=== PATIENT | female | born 1995 | race Caucasian/White ===

== ENCOUNTER → 2017-09-23 13:53 | Outpatient (CLI) | payer OTHER, SELFPAY ==
[2017-09-29 11:51] LABS: HPV Reflexed? NOT INDICATED
== END ==
PROVIDERS: Visit Provider Obstetrics & Gynecology
DX: Z12.4 Encounter for screening for malignant neoplasm of cervix (principal)
CPT/HCPCS: 88175; G0145

== ENCOUNTER 2018-01-17 09:28 | Emergency (ER) | payer OTHER, SELFPAY ==
[2018-01-17 09:28] VITALS: BP 149/74; PULSE 70; RESP 18; TEMP 36.4; O2SAT 100; BMI 23.7
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
--- NOTE | 2018-01-17 10:03 | ED.RN ---
Applied bacitracin to dasilva on fingers to assist in emulsifying residual rubber on fingers. Also applied mayonnaise after removing the bacitracin.
[2018-01-17] MEDS: Diphth,Pertuss(Acell),Tet Vac 0.5 ML Vial IM (10:52)
[2018-01-17] MEDS: BACITRACIN 15 GM Tube 1 APPLIC TOPICAL (10:53)
== END 2018-01-17 11:06 | disposition home or self-care (01) ==
PROVIDERS: Emergency Provider Emergency Medicine; Family Provider Family Medicine; PCP Family Medicine
DX: T23.321A Burn of third degree of single right finger (nail) except thumb, initial encounter (principal); T31.0 Burns involving less than 10% of body surface; X03.4XXA Hit by object due to controlled fire, not in building or structure, initial encounter; Y93.89 Activity, other specified
CPT/HCPCS: 90715; 99282

== ENCOUNTER → 2018-03-08 17:08 | Outpatient (CLI) | payer OTHER, SELFPAY ==
--- NOTE | 2018-03-08 17:14 | RAD_ITS ---
STUDY: X-RAY CHEST REASON FOR EXAM: Female, 23 years old. Chest pain TECHNIQUE: Frontal and lateral views COMPARISON: March 20, 2014 FINDINGS: The lungs are expanded. Mild right basilar interstitial prominence. Normal size heart. Normal mediastinum and erasmo. Normal visualized pulmonary arteries. Normal visualized aortic arch and descending thoracic aorta. Normal visualized thoracic spine. Normal visualized ribs, clavicles, and shoulders. There is no demonstrated abnormality of the visualized soft tissue structures of the upper abdomen. RAD/Chest PA and Lateral IMPRESSION: Mild right basilar interstitial prominence. Electronically Signed: Ruben Salas DO at 21:34 EST Tel [phone], Service support ,
[2018-03-08 17:50] LABS: Absolute Lymphocyte Count 2.12 X10^3/ul (0.83-4.51); Absolute Neutrophil Count 3.7 X10^3/uL (2.0-7.7); Basophil# 0.01 X10^3/uL; Basophil% 0.1 % (0-1); Eosinophil# 0.28 X10^3/uL; Eosinophils% 4.1 % (0-5); Hematocrit 42.2 % (37-47); Hemoglobin 14.3 g/dl (12.0-15.0); Lymphocyte # 2.12 X10^3/ul (4.0); Lymphocyte % 30.8 % (19-41); Mean Corp Hgb Conc 33.9 g/gl (32-36); Mean Corpuscular Hgb 32.6 pg (27.0-32.0); Mean Corpuscular Volume 96.3 fL (81-99); Mean Platelet Vol. 9.1 fl (6.2-12.0); Monocyte# 0.81 X10^3/uL; Monocyte% 11.8 % (0-10); Neutrophil # 3.66 X10^3/uL (2.7-7.7); Neutrophil % 53.1 % (47-70); Platelet Count 332 K/mm3 (150-450); RBC Distribution Width CV 11.8 % (11.6-14.6); RBC Distribution Width SD 40.5 fl (35.1-43.9); Red Blood Count 4.38 M/mm3 (4.2-5.4); White Blood Count 6.9 K/mm3 (4.4-11.0)
[2018-03-08 17:54] LABS: POSITIVE COUNT NO; POSITIVE DIFFERENTIAL NO; POSITIVE MORPHOLOGY NO
[2018-03-08 18:01] LABS: D-Dimer Quantitative (DVT/PE) < 0.27 FEU/ug/m (0.27-0.49)
[2018-03-08 18:15] LABS: Anion Gap 10 (5-15); BUN 21 mg/dL (7-18); BUN/Creat Ratio 21.9 RATIO (10-20); Chloride 104 mmol/L (98-107); Creatinine, Serum 0.96 mg/dL (0.55-1.02); EST Glomerular Filtration Rate 78 mL/min (>60); Est Glom Filt Rate - Afr Amer 94 mL/min (>60); Glucose 92 mg/dL (74-106); Potassium 3.9 mmol/L (3.5-5.1); Sodium Level 142 mmol/L (136-145)
== END ==
PROVIDERS: Family Provider Family Medicine; PCP Family Medicine; Referring Provider Family Medicine; Visit Provider Family Medicine
DX: R07.9 Chest pain, unspecified (principal)
CPT/HCPCS: 36415; 71046; 80048; 85025; 85379

== ENCOUNTER → 2018-10-28 14:55 | Outpatient (CLI) | payer OTHER, SELFPAY ==
[2018-11-02 15:00] LABS: HPV Reflexed? NOT INDICATED
== END ==
PROVIDERS: Visit Provider Obstetrics & Gynecology
DX: Z12.4 Encounter for screening for malignant neoplasm of cervix (principal)
CPT/HCPCS: 88175; G0145

== ENCOUNTER 2019-05-26 21:57 | Emergency (ER) | payer OTHER, SELFPAY ==
[2019-04-25 09:48] VITALS: BMI 23.7
[2019-05-26 21:58] VITALS: BP 119/77; PULSE 82; RESP 16; TEMP 36.7; O2SAT 100; BMI 25.4
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
== END 2019-05-26 23:17 | disposition home or self-care (01) ==
LOC: ED 22:38
PROVIDERS: Emergency Provider Emergency Medicine; PCP Family Medicine
DX: S01.81XA Laceration without foreign body of other part of head, initial encounter (principal); W50.0XXA Accidental hit or strike by another person, initial encounter; Y93.67 Activity, basketball; Y92.9 Unspecified place or not applicable; Y99.8 Other external cause status
CPT/HCPCS: 12011; 99283

== ENCOUNTER → 2019-10-28 15:44 | Outpatient (CLI) | payer OTHER, SELFPAY ==
[2019-10-28 17:38] LABS: AST(SGOT) 11 U/L (15-37); Alanine Aminotransfer ALT/SGPT 15 U/L (13-56); Alkaline Phosphatase 54 U/L (45-117); Amylase 46 U/L (25-115); Bilirubin, Direct 0.09 mg/dL (0.00-0.30); Globulin 3.5 g/dL (2.2-4.2); Lipase 97 U/L (73-393); Protein, Total 7.5 g/dL (6.4-8.2)
== END ==
PROVIDERS: PCP Family Medicine; Referring Provider Family Medicine; Visit Provider Family Medicine
DX: R10.9 Unspecified abdominal pain (principal)
CPT/HCPCS: 36415; 80076; 82150; 83690

== ENCOUNTER → 2019-10-31 09:51 | Outpatient (CLI) | payer OTHER, SELFPAY ==
--- NOTE | 2019-10-31 09:54 | US_ITS ---
STUDY: ABDOMINAL ULTRASOUND - RIGHT UPPER QUADRANT REASON FOR VISIT: Female, 24 years old abdominal pain. Nausea and vomiting. TECHNIQUE: Ultrasound evaluation of the right upper quadrant was performed with real-time and static de luna-scale imaging. TECHNICAL QUALITY: Adequate. COMPARISON: None. FINDINGS: Liver: The liver measures 12 point for cm. There is normal echogenicity of the liver. The bile ducts are within normal limits. There is hepatic color flow. The direction of portal flow is hepatopetal. There is no demonstrated mass lesion. Gallbladder: Normal distended gallbladder. The gallbladder wall measures 3 mm. There is a negative sonographic Lucas''s sign. There is no pericholecystic fluid. There are no gallstones. Common Bile Duct (C.B.D.): The common bile duct measures 3 mm. Pancreas: Normal size of the head, body and tail of the pancreas. There is normal echogenicity of the pancreas. There is no demonstrated pancreatic mass or cyst. Right Kidney: Normal size of the right kidney. The right kidney measures 11.0 cm. Normal renal cortex. The right cortex measures 1.4 cm. There is no demonstrated renal mass or cyst. There is no right hydronephrosis. US/Abdomen Limited IMPRESSION: Normal right upper quadrant ultrasound examination. Electronically Signed: Modesto Barnard DO at 19:16 EDT Tel [phone], Service support ,
== END ==
PROVIDERS: PCP Family Medicine; Referring Provider Family Medicine; Visit Provider Family Medicine
DX: R10.9 Unspecified abdominal pain (principal)
CPT/HCPCS: 76705; 96372

== ENCOUNTER → 2019-12-06 | Outpatient (CLI) | payer OTHER, SELFPAY | END | disposition home or self-care (01) | PROVIDERS: PCP Family Medicine; Referring Provider Family Medicine; Visit Provider Family Medicine | DX: U07.1 COVID-19 (principal) | CPT/HCPCS: 87635; U0003 ==

== ENCOUNTER → 2019-12-08 14:48 | Outpatient (CLI) | payer OTHER, SELFPAY ==
[2019-12-09 11:46] LABS: HIV - WCH Non-Reactive (Nonreactive); Hepatitis B Surface Antibody Non-Reactive; Hepatitis C Antibody Non-Reactive (Nonreactive)
[2019-12-14 08:09] LABS: Chlamydia By Nucleic Acid AMP Negative (Negative); Gonococcus By Nucleic Acid AMP Negative (Negative); HSV 1 By PCR Negative (Negative)
[2019-12-14 12:49] LABS: HSV 1 IgG 8.78 index (0.00-0.90); HSV 2 By PCR Negative (Negative); HSV 2 IgG < 0.91 index (0.00-0.90)
[2019-12-15 01:33] LABS: Rapid Plasmin Reagin (RPR) NONREACTIVE (NONREACTIVE)
== END ==
PROVIDERS: PCP Family Medicine; Visit Provider Obstetrics & Gynecology
DX: Z11.3 Encounter for screening for infections with a predominantly sexual mode of transmission (principal); N90.89 Other specified noninflammatory disorders of vulva and perineum
CPT/HCPCS: 36415; 86592; 86695; 86696; 86703; 86706; 86803; 87491; 87529; 87591

== ENCOUNTER → 2019-12-28 17:57 | Outpatient (CLI) | payer OTHER, SELFPAY | PROVIDERS: PCP Family Medicine; Referring Provider Otolaryngology; Visit Provider Otolaryngology | DX: Z11.59 Encounter for screening for other viral diseases (principal) | CPT/HCPCS: 87635; C9803; U0003 ==

== ENCOUNTER 2020-01-25 18:35 | Emergency (ER) | payer OTHER, SELFPAY ==
[2020-01-25 18:36] VITALS: BP 133/88; PULSE 103; RESP 16; TEMP 36.1; O2SAT 100; BMI 25.8
--- NOTE | 2020-01-25 19:16 | ED.VISSUMM ---
- ER Visit Summary Date of Service: 01/25/20 Chief Complaint: Epistaxis History of Present Illness: The patient is a 24 F who presents with epistaxis that began tonight. Patient had nasal septoplasty done by Dr. Rogel on 12/31/2019. Patient states the bleeding started suddenly tonight. Patient states she saturated 2 dish towels at home. Patient applied pressure to the anterior nares. Patient states most of the bleeding was coming from the left nares. Patient also admits to some bleeding into her nasopharynx and oropharynx. Patient states the bleeding stopped after approximately 25 minutes. Physical Examination: Vital signs are stable. Patient is afebrile. Patient is in no acute distress. Oral mucosa is pink and moist. Oropharynx showed some dried blood in the oropharynx. There is also dried blood noted in the left anterior nasal septum. There is no blood noted in the right nares. There is no septal deviation or septal hematoma noted. Neck is supple. Trachea is midline. There is no JVD or lymphadenopathy. Cranial nerves II through XII are intact. There are no focal motor or sensory deficits noted. Emergency Department Course and Treatment: Since the patient is not currently bleeding at this time, we will observe her in the emergency department for further bleeding. Patient had no further episodes of epistaxis here in the emergency department. Patient was instructed to follow-up with her primary care physician or ENT surgeon in 3 to 5 days. Patient understood and was agreeable with the plan. All questions were answered. Disposition: Discharge home Impression: Epistaxis This note was generated with [employer] dictation software. It may contain incorrect words, spelling, and punctuation that were not noted in review of the chart prior to signing ED Disposition - Plan for ED Patient: Disposition: Home or Assisted Living Diagnosis: Epistaxis Instructions: ED Epistaxis Adult Referrals: Hans Metzger MD [Primary Care Provider] - 3-5 Days Hamzah Henry MD [STAFF PHYSICIAN] - 3-5 Days
[2020-01-25 21:05] VITALS: PULSE 69; RESP 15; O2SAT 98
== END 2020-01-25 21:05 | disposition home or self-care (01) ==
PROVIDERS: Emergency Provider Emergency Medicine; PCP Family Medicine
DX: R04.0 Epistaxis (principal)
CPT/HCPCS: 99282

== ENCOUNTER → 2020-03-02 09:31 | Outpatient (CLI) | payer OTHER, SELFPAY ==
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
== END ==
PROVIDERS: PCP Family Medicine; Referring Provider Family Medicine; Visit Provider Family Medicine
DX: S49.92XA Unspecified injury of left shoulder and upper arm, initial encounter (principal); X58.XXXA Exposure to other specified factors, initial encounter; Y93.67 Activity, basketball
CPT/HCPCS: 73030